=== PATIENT | female | born 1960 | race Caucasian/White ===

== ENCOUNTER 2024-08-07 12:19 | Day surgery (SDC) | payer MEDICARE ==
[~2024-08-07] VITALS: Ht 160 cm; Wt 81.5 kg
[~2024-08-07 12:19] MED LIST: Atropine Sulfate 0.1 MG/ML 10ML SYR ONE; Glycopyrrolate 0.2 MG/ML 1MLVIAL ONE; Lactated Ringer's 1,000 ML IV ONE; Lidocaine 2% 5 ML SDV ONE; Lidocaine HCl/Pf 1% 5 ML VIAL ONE; Ondansetron HCl 2 MG / ML 2ML Vial ONE; ePHEDrine Sulfate 50 MG/ML 1ML Injection ONE; propofoL 50 ML IV ONE
[2024-08-07] MEDS ORDERED: METF500 (12:48)
[2024-08-07] MEDS ORDERED: TELM80 (12:49)
[2024-08-07] MEDS ORDERED: LORA1SY (12:49)
[2024-08-07] MEDS ORDERED: JARDIANCE25 MG (12:49)
[2024-08-07] MEDS ORDERED: ZOCOR20 MG (12:49)
[2024-08-07] MEDS ORDERED: HYDCHL25 (12:49)
[2024-08-07] MEDS ORDERED: Prinivil10 MG (12:49)
[2024-08-07] MEDS ORDERED: TRULICITY3 MG/0.5 M (12:50)
[2024-08-07] MEDS ORDERED: Lactated Ringer's 1,000 ML IV ONE (13:12)
[2024-08-07 14:52] VITALS: BP 129/74
== END 2024-08-07 14:53 | disposition home or self-care (01) ==
LOC: ORSCSDS 12:19
PROVIDERS: Surgery
PROC: 0DBL8ZX Excision of Transverse Colon, Via Natural or Artificial Opening Endoscopic, Diagnostic (ICD-10-PCS; principal; 2024-08-07 13:45)
PROC: 0DBN8ZX Excision of Sigmoid Colon, Via Natural or Artificial Opening Endoscopic, Diagnostic (ICD-10-PCS; principal; 2024-08-07 13:45)
PROC: 0DBK8ZX Excision of Ascending Colon, Via Natural or Artificial Opening Endoscopic, Diagnostic (ICD-10-PCS; principal; 2024-08-07 13:45)
DX: Z12.11 Encounter for screening for malignant neoplasm of colon (principal); D12.5 Benign neoplasm of sigmoid colon; D12.2 Benign neoplasm of ascending colon; D12.3 Benign neoplasm of transverse colon; J45.909 Unspecified asthma, uncomplicated; E11.9 Type 2 diabetes mellitus without complications; I10 Essential (primary) hypertension; E78.5 Hyperlipidemia, unspecified; Z79.84 Long term (current) use of oral hypoglycemic drugs; Z79.899 Other long term (current) drug therapy; E66.9 Obesity, unspecified; Z68.33 Body mass index [BMI] 33.0-33.9, adult
CPT/HCPCS: 82947; 88305; J0461; J2003; J2405; J2704; J7120